=== PATIENT | female | born 1990 | race Caucasian/White ===

== ENCOUNTER 2016-11-26 01:52 | Emergency (ER) | payer BC ==
[2016-11-26 02:16] VITALS: BP 144/50
[2016-11-26] MEDS ORDERED: Alum Hydrox/Mag Hydrox/Simeth 30 ML, Lidocaine 2% 15 ML PO ONE ×2 (02:23)
[2016-11-26 02:30] LABS: CHLORIDE,CL 108 mEq/L (98-106); SODIUM,NA 142 mEq/L (136-145)
--- NOTE | 2016-11-26 02:34 | EDM.PDOC ---
ED HPI GENERAL MEDICAL PROBLEM - General Chief Complaint: Abdominal Pain Stated Complaint: ABDOMINAL PAIN Time Seen by Provider: 11/26/16 02:10 Source of Information: Reports: Patient History Limitations: Reports: No Limitations - History of Present Illness INITIAL COMMENTS - FREE TEXT/NARRATIVE: Patient presents to the ED with complaints of midepigastric pain. States started about 90" ago. She was out tonight at the bars for a bachelorette green party. Had been drinking a large amount of alcohol. Did eat earlier this evening. Denies any recent blood in her stools. No fevers. Recently got herself but otherwise denies any excessive stress in her lift. No heartburn typically. Has had pain like this once in the past, was seen and felt it was possibly an ovarian cyst. She admits that the pain was lower at that time. No diarrhea. Mild nausea, no vomiting. Onset: Today, Sudden Duration: Hour(s): Location: Reports: Abdomen Quality: Reports: Sharp, Stabbing Severity: Moderate Associated Symptoms: Reports: Nausea/Vomiting. Denies: Fever/Chills, Loss of Appetite Right Upper Anterior Abdomen Pain Score (Numeric/FACES): 3 - Related Data Allergies Allergy/AdvReac Type Severity Reaction Status Date / Time [facility] Allergy UNKNOWN Verified 11/26/16 01:55 Home Meds: Home Meds Ethinyl Estradiol/Drospirenone [[place] 3 MG-0.03 MG] 3 mg PO DAILY 11/26/16 [ History] Past Medical History LMP (Approximate): Other (See Below) (history of ovarian cyst) Social & Family History - Family History Family Medical History: Unobtainable ED ROS GENERAL - Review of Systems Review Of Systems: See Below Constitutional: Denies: Fever, Chills, Decreased Appetite HEENT: Reports: No Symptoms Respiratory: Reports: No Symptoms Cardiovascular: Reports: No Symptoms GI/Abdominal: Reports: Abdominal Pain, Nausea. Denies: Constipation, Diarrhea, Hematochezia, Melena, Vomiting : Reports: No Symptoms Musculoskeletal: Reports: No Symptoms Skin: Reports: No Symptoms Neurological: Reports: No Symptoms ED EXAM, GI/ABD - Physical Exam Exam: See Below Exam Limited By: No Limitations General Appearance: Alert, WD/WN, No Apparent Distress Ears: Normal External Exam, Normal TMs Nose: Normal Inspection, Normal Mucosa, No Blood Throat/Mouth: Normal Inspection, Normal Oropharynx Head: Normocephalic Neck: Normal Inspection, Supple, Non-Tender Respiratory/Chest: No Respiratory Distress, Lungs Clear, Normal Breath Sounds Cardiovascular: Normal Peripheral Pulses, Regular Rate, Rhythm GI/Abdominal Exam: Normal Bowel Sounds, Soft, Tender (midepigastric area) Neurological: Alert, Oriented Psychiatric: Normal Affect, Normal Mood Skin Exam: Warm, Dry Course - Vital Signs Last Recorded V/S: Last Vital Signs Temp 97.0 F 11/26/16 02:13 Pulse 87 11/26/16 02:13 Resp 16 11/26/16 02:13 BP 144/50 H 11/26/16 02:13 Pulse Ox 99 11/26/16 02:13 - Orders/Labs/Meds Orders: Active Orders 24 hr Category Date Time Status Abdomen 2V AP Flat Upright [CR] Stat Exams 11/26/16 02:08 Ordered Labs: Laboratory Tests 11/26/16 11/26/16 11/26/16 Range/Units 02:13 02:13 02:13 WBC (5.0-10.0) 10^3/uL RBC (4.00-5.50) 10^6/uL Hgb (12.0-16.0) g/dL Hct (37.0-47.0) % MCV (82.0-94.0) fL MCH (27.0-32.0) pg MCHC (33.0-38.0) g/dL RDW Coeff of Ian (11.0-15.0) % Plt Count (150-400) 10^3/uL Neut % (Auto) (35-85) % Lymph % (Auto) (10-55) % [place] % (Auto) (0-16) % Eos % (Auto) (0-5) % Baso % (Auto) (0-3) % Neut # (Auto) (1.80-7.00) 10^3/uL Lymph # (Auto) (1.00-4.80) 10^3/uL [place] # (Auto) (0.00-0.80) 10^3/uL Eos # (Auto) (0.00-0.45) 10^3/uL Baso # (Auto) 10^3/uL Sodium 142 (136-145) mEq/L Potassium 3.2 L (3.5-5.0) mEq/L Chloride 108 H (98-106) mEq/L Carbon Dioxide 25 (21-32) mmol/L BUN 13 (7-18) mg/dL Creatinine 0.8 (0.6-1.0) mg/dL Est Cr Clr Drug Dosing 89.29 mL/min Estimated GFR (MDRD) > 60 (>=60) mL/min Glucose 84 (75-99) mg/dL Calcium 8.2 L (8.4-10.1) mg/dL Total Bilirubin 0.3 (0.0-1.0) mg/dL AST 33 (15-37) U/L ALT 40 (12-78) U/L Alkaline Phosphatase 71 (46-116) U/L C-Reactive Protein < 0.2 L (0.2-0.8) mg/dL Total Protein 6.7 (6.4-8.2) g/dL Albumin 3.8 (3.4-5.0) g/dL Amylase 64 (25-115) U/L Urine Color Yellow (YELLOW) Urine Appearance Clear (CLEAR) Urine pH 5.0 (4.5-8.0) Ur Specific [place] 1.010 (1.003-1.020) Urine Protein 100 H (NEGATIVE) mg/dL Urine Glucose (UA) Negative (NEGATIVE) mg/dL Urine Ketones Negative (NEGATIVE) mg/dL Urine Occult Blood Negative (NEGATIVE) Urine Nitrite Negative (NEGATIVE) Urine Bilirubin Negative (NEGATIVE) Urine Urobilinogen 0.2 (0.2-1.0) EU/dL Ur Leukocyte Esterase Negative (NEGATIVE) Urine RBC Not seen (0-5) /HPF Urine WBC Not seen (0-5) /HPF Urine Bacteria Few H (NOT SEEN) /HPF Urine HCG, Qual Negative Monoscreen 11/26/16 11/26/16 Range/Units 02:16 08:16 WBC 9.4 (5.0-10.0) 10^3/uL RBC 3.96 L (4.00-5.50) 10^6/uL Hgb 12.3 (12.0-16.0) g/dL Hct 35.5 L (37.0-47.0) % MCV 89.6 (82.0-94.0) fL MCH 31.1 (27.0-32.0) pg MCHC 34.6 (33.0-38.0) g/dL RDW Coeff of Ian 11.0 (11.0-15.0) % Plt Count 272 (150-400) 10^3/uL Neut % (Auto) 27.9 L (35-85) % Lymph % (Auto) 62.0 H (10-55) % [place] % (Auto) 6.1 (0-16) % Eos % (Auto) 3.5 (0-5) % Baso % (Auto) 0.5 (0-3) % Neut # (Auto) 2.63 (1.80-7.00) 10^3/uL Lymph # (Auto) 5.83 H (1.00-4.80) 10^3/uL [place] # (Auto) 0.57 (0.00-0.80) 10^3/uL Eos # (Auto) 0.33 (0.00-0.45) 10^3/uL Baso # (Auto) 0.05 10^3/uL Sodium (136-145) mEq/L Potassium (3.5-5.0) mEq/L Chloride (98-106) mEq/L Carbon Dioxide (21-32) mmol/L BUN (7-18) mg/dL Creatinine (0.6-1.0) mg/dL Est Cr Clr Drug Dosing mL/min Estimated GFR (MDRD) (>=60) mL/min Glucose (75-99) mg/dL Calcium (8.4-10.1) mg/dL Total Bilirubin (0.0-1.0) mg/dL AST (15-37) U/L ALT (12-78) U/L Alkaline Phosphatase (46-116) U/L C-Reactive Protein (0.2-0.8) mg/dL Total Protein (6.4-8.2) g/dL Albumin (3.4-5.0) g/dL Amylase (25-115) U/L Urine Color (YELLOW) Urine Appearance (CLEAR) Urine pH (4.5-8.0) Ur Specific [place] (1.003-1.020) Urine Protein (NEGATIVE) mg/dL Urine Glucose (UA) (NEGATIVE) mg/dL Urine Ketones (NEGATIVE) mg/dL Urine Occult Blood (NEGATIVE) Urine Nitrite (NEGATIVE) Urine Bilirubin (NEGATIVE) Urine Urobilinogen (0.2-1.0) EU/dL Ur Leukocyte Esterase (NEGATIVE) Urine RBC (0-5) /HPF Urine WBC (0-5) /HPF Urine Bacteria (NOT SEEN) /HPF Urine HCG, Qual Monoscreen Positive Meds: Medications Discontinued Medications Generic Name Dose Route Start Last Admin Trade Name Freq PRN Reason Stop Dose Admin Al Hydroxide/Mg Hydroxide 30 0 ml 11/26/16 02:23 ml/ Lidocaine HCl 15 ml PO 11/26/16 02:24 ONETIME ONE - Re-Assessments/Exams Free Text/Narrative Re-Assessment/Exam: 11/26/16 02:45 Lymphocytes are elevated. She denies a sore throat, hasn't noted any enlarged lymph nodes but does admit that she has been very tired lately. Departure - Departure Time of Disposition: 02:48 Disposition: Home, Self-Care 01 Condition: Fair Clinical Impression: Gastritis, Mononucleosis - Discharge Information Forms: ED Department Discharge Care Plan Goals: 1. Rest 2. Push fluids 3. Ibuprofen for discomfort 4. Prilosec 20 mg daily for 14 days 5. Increase intake of bananas, spinach, green vegetables 6. Follow up with primary care provider in 2 weeks for recheck
== END 2016-11-26 03:00 | disposition home or self-care (01) ==
LOC: CC.ED 01:52
DX: K29.70 Gastritis, unspecified, without bleeding (principal); B27.90 Infectious mononucleosis, unspecified without complication; Z79.899 Other long term (current) drug therapy; Z88.8 Allergy status to other drugs, medicaments and biological substances
CPT/HCPCS: 36415; 74020; 80053; 81001; 81025; 82150; 85025; 86140; 86308; 99284; A9270